=== PATIENT | female | born 1960 | race Two or more races ===

== ENCOUNTER 2024-01-04 08:21 | Day surgery (SDC) | payer MEDICAID ==
[2024-01-02 11:09] LABS: Urine Bacteria None Seen /hpf (None Seen)
[2024-01-02 11:16] LABS: Basophils # (auto) 0.1 10 ^3/uL (0-0.2); Lymphocytes % (auto) 23.2 % (10.0-50.0); Monocytes # (auto) 0.6 10 ^3/uL (0-1.3); Neutrophils # (auto) 5.1 10 ^3/uL (1.6-8.6)
[2024-01-02 11:19] LABS: Eosinophils # (auto) 0.3 10 ^3/uL (0-0.8); Eosinophils % (auto) 4.3 % (0.0-7.0); Hematocrit 35.2 % (36.0-46.0); Hemoglobin 11.5 g/dL (12.2-16.2); Lymphocytes # (auto) 1.9 10 ^3/uL (0.4-5.4); Mean Corpuscular Hemoglobin 23.7 pg (28.0-32.0); Mean Corpuscular Hgb Conc. 32.5 g/dL (32.0-36.0); Mean Corpuscular Volume 72.9 fL (80.0-100.0); Monocytes % (auto) 7.5 % (0.0-12.0); Platelet Count (auto) 263 10^3/uL (140-450); Red Blood Cells 4.83 10^6/uL (4.0-5.20); Red Cell Distribution Width 15.7 % (11.8-14.3)
[2024-01-02 11:20] LABS: Urine Blood Negative /uL (Negative); Urine Clarity Clear (Clear); Urine Color Colorless (Yellow); Urine Protein, UAD Negative (Negative); Urine Specific Gravity 1.011 (1.001-1.035); Urine Urobilinogen Normal (Negative); Urine WBC <1 /hpf (0 - 5); Urine pH 6.5 (5.0-9.0)
[2024-01-02 11:42] LABS: INR 0.98 (0.9-1.15); Partial Thromboplastin Time 26.1 SEC (24.5-34.5); Prothrombin Time 10.4 sec (9.3-11.8)
[2024-01-02 12:04] LABS: Alanine Aminotransferase 31 U/L (7-40); Alkaline Phosphatase 263 U/L (46-116); Anion Gap 4 (5-15); Aspartate Aminotransferase 31 U/L (13-40); Blood Urea Nitrogen 17 mg/dL (9-23); Carbon Dioxide 28 mmol/L (20-31); Chloride 107 mmol/L (98-107); Glucose 111 mg/dL (74-106); Potassium 4.6 mmol/L (3.5-5.1); Sodium 139 mmol/L (136-145)
[2024-01-02 12:05] LABS: Albumin 4.7 g/dL (3.2-4.8); Bilirubin, Total 0.3 mg/dL (0.2-1.0); Total Protein 7.6 g/dL (5.7-8.2)
[~2024-01-04] VITALS: Ht 170.2 cm; Wt 83.0 kg
[~2024-01-04 08:21] MED LIST: ASPI1TAB20 PO; CLON0.2T PO; LISI2.5T47 PO; NIFE1TAB30 PO; PERCOT PO; SIMV10TA20 PO
[2024-01-04] MEDS ORDERED: BUPIVACAINE 0.5% MPF INJ 30ML SDV IJ ONE (08:38)
[2024-01-04] MEDS ORDERED: ROPIVACAINE 0.5% (5MG/ML) 20ML AMPULE IJ ONE (08:49)
[2024-01-04] MEDS ORDERED: PROPOFOL 10 MG/ML 20 ML IV ONE (08:52)
[2024-01-04] MEDS ORDERED: fentaNYL CITRATE 100 MCG/2 ML VL ONE (08:52)
[2024-01-04] MEDS: ceFAZolin 2 GM/D5W100ml 100 ML IV ONE (09:05)
[2024-01-04] MEDS: VANCOMYCIN HCL 1000 MG VL ONE (09:10)
[2024-01-04] MEDS ORDERED: ePHEDrine SULFATE 50 MG/ML AMP ONE (09:53)
[2024-01-04 10:47] VITALS: TEMP 97.7; O2SAT 97
[2024-01-04] MEDS ORDERED: METOCLOPRAMIDE HCL 5MG/ml INJ 2ml VIAL IV ONE (11:00)
[2024-01-04] MEDS ORDERED: ONDANSETRON HCL 4 MG/2 ML VIAL IV ONE (11:00)
[2024-01-04] MEDS ORDERED: MEPERIDINE HCL (25 MG/ML) 1ML VIAL IV PRN (11:00)
[2024-01-04] MEDS ORDERED: ACETAMINOPHEN IV 1000 MG/100ML (10MG/ML) IV PRN (11:00)
[2024-01-04] MEDS ORDERED: HYDROmorphone HCL 2 MG/ML VL/or syr IV PRN (11:00)
[2024-01-04 11:17] VITALS: BP 119/62; PULSE 73; RESP 21; O2SAT 99
== END 2024-01-04 11:47 | disposition home or self-care (01) ==
LOC: SUR 08:21
PROVIDERS: ATTEND Podiatrist
DX: M21.862 Other specified acquired deformities of left lower leg (principal); M19.172 Post-traumatic osteoarthritis, left ankle and foot; M65.872 Other synovitis and tenosynovitis, left ankle and foot; I10 Essential (primary) hypertension; E78.5 Hyperlipidemia, unspecified; E66.9 Obesity, unspecified; Z68.29 Body mass index [BMI] 29.0-29.9, adult; Z98.890 Other specified postprocedural states; Z79.899 Other long term (current) drug therapy; M25.572 Pain in left ankle and joints of left foot
CPT/HCPCS: 29891; 29898; 36415; 80053; 81001; 85025; 85610; 85730; J2704; J2795; J3010; J3370; J3490; J7050

== ENCOUNTER → 2024-10-03 | Day surgery (SDC) | payer MEDICARE, MEDICAID ==
[2024-09-28 10:04] LABS: Hematocrit 36.1 % (36.0-46.0); Hemoglobin 11.7 g/dL (12.2-16.2); Mean Corpuscular Hemoglobin 23.5 pg (28.0-32.0); Mean Corpuscular Volume 72.3 fL (80.0-100.0); Nucleated Red Blood Cells % 0.0 %
[2024-09-28 10:12] LABS: Alanine Aminotransferase 25 U/L (7-40); Anion Gap 12 (5-15); BUN/Creatinine Ratio 18.4 (10.0-20.0); Bilirubin, Total 0.4 mg/dL (0.2-1.0); Blood Urea Nitrogen 19 mg/dL (9-23); Calcium 10.2 mg/dL (8.7-10.4); Carbon Dioxide 24 mmol/L (20-31); Potassium 4.0 mmol/L (3.5-5.1); Sodium 144 mmol/L (136-145); Total Protein 7.6 g/dL (5.7-8.2)
[2024-09-28 10:13] LABS: Urine Protein, UAD Negative (Negative)
[2024-09-28 10:14] LABS: Albumin 4.8 g/dL (3.2-4.8); Alkaline Phosphatase 228 U/L (46-116); Chloride 108 mmol/L (98-107); Glucose 112 mg/dL (74-106)
[2024-09-28 10:15] LABS: INR 0.99 (0.9-1.15); Partial Thromboplastin Time 27.0 SEC (24.5-34.5); Prothrombin Time 10.5 sec (9.3-11.8)
[~2024-10-03] VITALS: Ht 170.2 cm; Wt 82.6 kg
[~2024-10-03] MED LIST changes: +BUPIVACAINE 0.25% INJ 50ML VIAL ONE; +BUPIVACAINE 0.5% P/F INJ 10 ML VIAL ONE; +BUPIVACAINE HCL 50 ML ONE; +FLUMAZENIL 0.1 MG/ML INJ 10ML MDV IV PRN; +GLYCOPYRROLATE 0.2 MG/ML 1ML VIAL ONE; +KETOROLAC TROMETH 30 MG/ML 1ML VIAL ONE; +LIDOCAINE 1% INJ PF 5ML AMP ONE; +NALOXONE HCL 0.4 MG/ML VIAL IV PRN; +ONDANSETRON HCL 4 MG/2 ML VIAL IV PRN; +ONDANSETRON HCL 4 MG/2 ML VIAL ONE; +OXYC-963 PO; -PERCOT PO; +PROPOFOL 10 MG/ML 20 ML IV ONE; +hydrALAZINE HCL 20 MG/ML VL IV PRN
[2024-10-03] MEDS: CELECOXIB 100 MG CAP PO ONE (09:11)
[2024-10-03] MEDS: GABAPENTIN 300 MG CAP PO ONE (09:11)
[2024-10-03] MEDS: ACETAMINOPHEN IV 1000 MG/100ML (10MG/ML) IV ONE (09:11)
[2024-10-03] MEDS: ceFAZolin 2 GM/D5W50ml 50 ML IV ONE (09:30)
[2024-10-03 10:28] VITALS: TEMP 97.1; O2SAT 100
--- NOTE | 2024-10-03 10:32 | DVHOP2 ---
Operative Report - 2 Report Details Date: 10/03/24 Preop Diagnosis: 1. Right ankle instability 2. Right ATFL tear 3. Right ankle pain Postop Diagnosis: Same as preop Surgeon: Reese Ferrera MD Anesthesiologist: See anesthesia Anesthesia: General Implant: Arthrex FiberTak x2 Consent: The patient was informed of the risks and benefits of the procedure. These include but are not limited to complications of anesthesia, postoperative infection, incomplete relief of symptoms, recurrence of symptoms, damage to blood vessels, nerves and tendons, deep venous thrombosis, pulmonary embolism and possible need for repeat surgery in the future. Complications: None Estimated Blood Loss: Minimal Fluids: See anesthesia Findings: Consistent with the diagnosis Indications for Surgery: Worsening right ankle pain Name of Procedure Performed 1. Right ankle scope with extensive debridement (18032) 2. Right ankle arthrotomy (09645) 3. Right ankle brostrom (19695) Procedure Details Procedure Details: PRE-PROCEDURE INFORMATION: In the pre-op holding area, the extremity to be operated on was clearly marked and the patient verified correct laterality of the marking. The patient was transferred to the OR table and placed in a supine position. A timeout was performed in which identification of the correct patient, procedure, location, and materials was done. The right foot and leg were prepped and draped in normal sterile fashion. The foot and leg were exsanguinated and the thigh tourniquet was inflated to 250 mmHg. DESCRIPTION OF PROCEDURE: Attention was directed to the right anterior ankle where stab incisions were made at the medial and lateral ankle gutters. These in cisions were deepened through blunt dissection to the level of the capsule, and utilizing the ankle arthroscopy set, the arthroscopy camera and the debrider were placed into the ankle joint and an extensive exam of the ankle joint was performed of the medial and lateral ankle gutters, the posterior talus and tibia as well as the anterior talus and tibia. These areas were visually inspected using the camera. It was noted that there was significant ankle synovitis, including hemorrhagic synovitis throughout the ankle specifically the medial and lateral gutters. There appeared to be no osteochondral defects or lesion. Utilizing arthroscopy debrider and utilizing the total arthroscopy set, there was extensive debridement of the aforementioned ankle synovitis. It was noted prior to performing the arthroscopy that the patient's ankle was maximally dorsiflexed and plantar flexed passively that there was significant audible and palpable clicking within the joint. After this extensive debridement was performed, there was no longer any palpable or audible clicking of this joint. After the ankle scope was performed, the incisions were closed with nylon suture. Attention was directed to the right lateral ankle where a curvilinear longitudinal incision was made just anterior to the distal fibula. This incision was deepened through blunt and sharp dissection to the level of both the fibula and the talus so that both were visualized. Care was taken throughout dissection to avoid damage to neurovascular structures. An arthrotomy of the ankle joint was performed revealing normal appearing joint fluid. It was noted that the anterior talofibular ligament was attenuated and needed repair. The talar dome was inspected and noted to be free of osteochondral lesions. Utilizing a perio steal elevator, the periosteum of the anterior distal fibula was reflected in preparation for the placement of the soft tissue anchors. A soft tissue anchor was then placed proximal and distal on the fibula. The knotless fibertak anchors were then used to recreate the ATFL and CFL ligaments. Prior to the procedure being performed, there was a positive anterior drawer sign. After, this procedure, there was a negative anterior drawer. The capsule was then oversewn with 2-0 Vicryl. The wound was irrigated copiously with normal saline and closed in layers. Closed with 2-0 Vicryl, 3-0 Monocryl, 4-0 nylon All surgical wounds were irrigated copiously with saline and closed in layers with the aforementioned suture material. A dry sterile dressing was placed on the surgical extremity. The patient was placed in a cam boot POSTOPERATIVE INFORMATION: The patient tolerated the above noted procedure and anesthesia well and was transferred to the PACU with vital signs stable, and vascular status intact with capillary refill intact to all digits. Postoperative instructions reviewed in detail with the patient with written instructions provided. Patient will return to clinic in approximately 10-14 days for first postoperative visit. Patient has the number of the clinic and was instructed to call prior to that time should any problems, questions, or concerns arise. Condition Good Disposition Home REESE FERRERA DPM Oct 03, 2024 10:32
[2024-10-03] MEDS: fentaNYL CITRATE 100 MCG/2 ML VL IV PRN (10:47)
[2024-10-03] MEDS: HYDROmorphone HCL 2 MG/ML VL/or syr IV PRN (11:04)
[2024-10-03 11:30] VITALS: BP 115/62; PULSE 64; RESP 14; O2SAT 97
== END | disposition home or self-care (01) ==
LOC: SUR 08:07
PROVIDERS: ATTEND Podiatrist
DX: M25.371 Other instability, right ankle (principal); S93.431A Sprain of tibiofibular ligament of right ankle, initial encounter; M65.871 Other synovitis and tenosynovitis, right ankle and foot; M19.072 Primary osteoarthritis, left ankle and foot; G89.29 Other chronic pain; I10 Essential (primary) hypertension; Z79.899 Other long term (current) drug therapy; Z98.890 Other specified postprocedural states; X58.XXXA Exposure to other specified factors, initial encounter; Y93.89 Activity, other specified; Y92.89 Other specified places as the place of occurrence of the external cause; Y99.8 Other external cause status
CPT/HCPCS: 27698; 29898; 36415; 80053; 81001; 85025; 85610; 85730; C1713; J0169; J0690; J1100; J1171; J1885; J2405; J2704; J3010; J3490; J0131